=== PATIENT | female | born 1985 | race Caucasian/White ===

== ENCOUNTER → 2018-10-26 | Outpatient (CLI) | payer SELFPAY ==
[2015-02-07 13:48] VITALS: BP 115/68
[~2018-10-26] MED LIST: ATIVAN; EFFEXOR XR37.5 M1 PO; HCTZ 25MG25 MG PO; MULTIPLE VITAMI1 CAP PO; VIIBRYD10 MG; VIIBRYD20 MG PO
[2018-10-26 15:01] LABS: HEMATOCRIT 45.4 % (37.0-47.0); MEAN PLATELET VOLUME 10.1 fl (7.4-10.4); RED BLOOD COUNT 5.13 M/mm3 (4.10-5.30); RED CELL DISTRIBUTION WIDTH 11.6 % (11.5-14.5); WHITE BLOOD COUNT 9.1 K/mm3 (4.8-10.8)
[2018-10-26 15:11] LABS: ALBUMIN 4.8 g/dL (3.5-5.0); CALCIUM 10.3 mg/dL (8.4-10.2); POTASSIUM 3.3 mmol/L (3.6-5.0); TOTAL BILIRUBIN 0.5 mg/dL (0.2-1.3); TOTAL PROTEIN 8.1 g/dL (6.3-8.2)
== END ==
LOC: LAB 14:34
PROVIDERS: Family Medicine
DX: H81.49 Vertigo of central origin, unspecified ear (principal); I10 Essential (primary) hypertension; Z79.899 Other long term (current) drug therapy